=== PATIENT | female | born 1995 | race Caucasian/White ===

== ENCOUNTER 2020-08-19 10:26 | Emergency (ER) | payer BC, SELFPAY ==
[2020-08-19 10:40] VITALS: BP 112/76; PULSE 62; RESP 16; TEMP 36.9; O2SAT 100
--- NOTE | 2020-08-19 10:45 | ED.WOUNDLAC ---
HPI - Wound/Laceration General Chief Complaint: Wound/Laceration Stated Complaint: Laceration to finger Time Seen by Provider: 08/19/20 10:45 Source: patient Mode of arrival: ambulatory Limitations: no limitations History of Present Illness HPI narrative: Laney Alvarenga is a 24 yo female with no PMH cones to express care with a small laceration of her R index finger that occurred yesterday. She has oozing in area each time she straightens finger. She has no ongoing bleeding, has tetanus. 2 vomiting diarrhea, no dizziness, patient wrapped finger with gauze and Coban, elevated during the night but it continues to ooze Related Data Home Medications Medication Instructions Recorded Confirmed norelgestromin-ethin.estradiol 1 patch TRANSDERMAL DIRECTED 08/19/20 08/19/20 [Sandy] Allergies Allergy/AdvReac Type Severity Reaction Status Date / Time No Known Allergies Allergy Unverified 08/19/20 10:32 Review of Systems Review of Systems: Narrative: CONSTITUTIONAL: Denies fever, chills, sweats. EYES: Denies visual changes, redness, discharge. ENT: Denies rhinorrhea, congestion, sore throat, otalgia. CARDIOVASCULAR: Denies chest pain, palpitations, edema. RESPIRATORY: Denies dyspnea, wheezing, cough GASTROINTESTINAL: Denies abdominal pain, nausea, vomiting, diarrhea. GENITOURINARY: Denies dysuria, hematuria, abnormal discharge SKIN: Denies rash or itching. Patient laceration base of right index finger, palm side NEUROLOGIC: Denies numbness, or focal weakness. PSYCHIATRIC: Denies anxiety or depression. [facility] Past Medical History Medical History Psychophysiologic insomnia Family History Family History Mother Patient's mother is in good health Father Patient's father is in good health Sibling Patient's sister is in good health Patient's brother is in good health Grandparent Family history of coronary artery disease, Onset Age: 74 Other Hypertension Social History Social History Social History: Smoking status: Never smoker Second hand tobacco smoke exposure: No Alcohol intake: never Substance use: never Substance use type: does not use Gender identity (if verbalized by the patient): Female Comments At time of signature, I agree with nursing past medical, surgical, social and family history. There is no relevant family history pertinent to the presenting complaint. Exam Narrative: Exam Narrative: GENERAL: This is a well-nourished, well-developed patient, in mild distress. HEAD: normocephalic, atraumatic. EYES: Sclera clear/white. Vision is grossly intact. EARS: External ears normal, . Hearing grossly intact. NOSE: External nose normal without nasal discharge, nares without redness, no rhinorrhea. THROAT: Mucous membranes moist, NECK: Neck supple, CARDIOVASCULAR: Regular rate and rhythm without murmurs, gallops, or rubs. RESPIRATORY: Clear to auscultation. Breath sounds equal bilaterally. No wheezes, rales, or rhonchi. GASTROINTESTINAL: Abdomen soft, SKIN: warm, intact with 1.5 V-shaped superficial laceration palmar side of the base of right index finger, full range of motion good finger opposition with finger strength good sensation 2+ radial pulse NEURO: awake, alert, and oriented to person, place and time. There were no obvious focal neurologic abnormalities. Steady gait EXTREMITIES: Normal range of motion. BACK: Nontender without deformity Course Course Emergency Course: Patient had right index finger replaced hand yesterday Laceration superficial of the does not require suturing was continued is pleasant so was covered with Surgicel and dressed with Coban and finger splint Discussed care of hand over the next few days received tetanus shot Vital Signs Vital signs: Vital Signs
[2020-08-19] MEDS: TETANUS,DIPHTHERIA,AC PERTUSSIS ADULT (0.5 ML) BOOSTRIX IM (10:49)
== END 2020-08-19 11:06 | disposition home or self-care (01) ==
PROVIDERS: Emergency Provider Nurse Practitioner; PCP Family Medicine
DX: S61.210A Laceration without foreign body of right index finger without damage to nail, initial encounter (principal); X58.XXXA Exposure to other specified factors, initial encounter; Z23 Encounter for immunization
CPT/HCPCS: 12001; 90471; 90715; 99213; G0463

== ENCOUNTER 2021-07-08 10:36 | Emergency (ER) | payer BC, SELFPAY ==
[2021-07-08 10:49] VITALS: BP 113/70; PULSE 72; RESP 16; TEMP 37.3; O2SAT 100
--- NOTE | 2021-07-08 11:18 | ED.ABDPAIN ---
HPI - Abdominal Pain General Chief Complaint: Nausea/Vomiting/Diarrhea Stated Complaint: abd pain Time Seen by Provider: 07/08/21 11:18 Source: patient Mode of arrival: ambulatory Limitations: no limitations History of Present Illness HPI narrative: Laney Alvarenga is a 25 yo female with PMH of anxiety at night, [facility] a left-sided enlarged lymph node and a history of 24 hours of nausea & vomiting stop last night at midnight. She and ate Israeli food the night before and she started getting sick and having diarrhea and vomiting and did it all day long, her believes that she may have gotten some type of food poisoning (they ate different meals) Related Data Allergies Allergy/AdvReac Type Severity Reaction Status Date / Time No Known Allergies Allergy Unverified 07/08/21 11:10 Review of Systems Review of Systems: CONSTITUTIONAL: Denies fever, chills, sweats. EYES: Denies visual changes, redness, discharge. ENT: Denies rhinorrhea, congestion, sore throat, otalgia. Bilateral lymph nodes left being greater than right; submandibular CARDIOVASCULAR: Denies chest pain, palpitations, edema. RESPIRATORY: Denies dyspnea, wheezing, cough GASTROINTESTINAL: Denies abdominal pain, nausea, vomiting, diarrhea that stopped last night at midnight. GENITOURINARY: Denies dysuria, hematuria, abnormal discharge SKIN: Denies rash or itching. NEUROLOGIC: Denies numbness, or focal weakness. PSYCHIATRIC: Denies anxiety or depression. [facility] Past Medical History Medical History Anxiety Psychophysiologic insomnia Family History Family History Mother Patient's mother is in good health Father Patient's father is in good health Sibling Patient's sister is in good health Patient's brother is in good health Grandparent Family history of coronary artery disease, Onset Age: 74 Other Hypertension Social History Social History Social History: Smoking status: Never smoker Second hand tobacco smoke exposure: No Alcohol intake: never Substance use: never Substance use type: does not use Gender identity (if verbalized by the patient): Female Sexual Orientation (if Verbalized by the Patient): Straight or Heterosexual Comments At time of signature, I agree with nursing past medical, surgical, social and family history. There is no relevant family history pertinent to the presenting complaint. Exam Narrative: GENERAL: This is a well-nourished, well-developed patient, in mild distress. HEAD: normocephalic, atraumatic. EYES: Sclera clear/white. Vision is grossly intact. EARS: External ears normal, auditory canals erythema and without drainage, TMs normal without perforation. Hearing grossly intact. NOSE: External nose normal without nasal discharge, nares without redness, no rhinorrhea. THROAT: Mucous membranes moist, posterior pharynx erythema, no edema NECK: Neck supple, left-sided submandibular tender lymph node CARDIOVASCULAR: Regular rate and rhythm without murmurs, gallops, or rubs. RESPIRATORY: Clear to auscultation. Breath sounds equal bilaterally. No wheezes, rales, or rhonchi. GASTROINTESTINAL: Abdomen soft, SKIN: warm, intact with no suspicious lesions or rash, good texture and turgor. NEURO: awake, alert, and oriented to person, place and time. There were no obvious focal neurologic abnormalities. Steady gait EXTREMITIES: Normal range of motion. BACK: Nontender without deformity Course Course Emergency Course: Patient comes with left-sided greater than right submandibular lymph node tenderness and swelling as well as nausea vomiting stopped last night Patient has been able to take fluids without problem and has no abdominal pain On exam her ears and throat are both erythematous strep test was d
== END 2021-07-08 11:50 | disposition home or self-care (01) ==
PROVIDERS: Emergency Provider Nurse Practitioner; PCP Family Medicine
DX: A05.9 Bacterial foodborne intoxication, unspecified (principal); I88.9 Nonspecific lymphadenitis, unspecified; F41.9 Anxiety disorder, unspecified
CPT/HCPCS: 87081; 87880; 99213; G0463

== ENCOUNTER 2022-05-20 08:18 | Emergency (ER) | payer BC, SELFPAY ==
--- NOTE | 2022-05-20 08:22 | ED.URI ---
HPI - URI/Sore Throat General Chief Complaint: Upper Respiratory Infection Stated Complaint: Fever,Multiple Compliants Time Seen by Provider: 05/20/22 08:25 Source: patient Mode of arrival: ambulatory Limitations: no limitations History of Present Illness HPI Narrative: Ms. Alvarenga is a 26-year-old female patient presenting to the clinic today with complaints of fever, chills, jaw pain, and body aches x1 day. She reports no known exposure to anybody with COVID, flu, or strep. She does have a sore to the left heel that she thinks may be infected. Reports highest temperature was 100 ?F. She denies any dental pain MD elicited complaint: fever Related Data Allergies Allergy/AdvReac Type Severity Reaction Status Date / Time No Known Allergies Allergy Verified 05/20/22 08:23 Review of Systems Review of Systems: Pertinent positives per HPI. Patient denies any rash, headache, visual changes, dizziness, cough, shortness of breath, chest pain, palpitations, nausea, vomiting, diarrhea, constipation, abdominal pain, or any urinary issues. PMFSH Past Medical History Medical History Anxiety Psychophysiologic insomnia Family History Family History Mother Patient's mother is in good health Father Patient's father is in good health Sibling Patient's sister is in good health Patient's brother is in good health Grandparent Family history of coronary artery disease, Onset Age: 74 Other Hypertension Social History Social History Social History: Smoking status: Never smoker Second hand tobacco smoke exposure: No Alcohol intake: never Substance use: never Substance use type: does not use Gender identity (if verbalized by the patient): Female Sexual Orientation (if Verbalized by the Patient): Straight or Heterosexual Comments At the time of my signature, I reviewed and agree with the nursing past medical, surgical, social, and family history. There is no relevant family history pertinent to the patient complaint. Exam Narrative: General: Well-developed, well nourished, in no apparent distress Head: Normocephalic, atraumatic Eyes: Pupils equally round and reactive to light bilaterally, EOM intact, sclera and conjunctive clear, no discharge, lids normal Ears: TMs intact and clear, ear canals clear, no drainage, grossly hearing normal. Nose: Nares patent, clear discharge, no inflammation, no sinus tenderness. Mouth: Oral pharynx without lesions or masses, good dentition, MMM. Tenderness to palpation over bilateral TMJ Neck: Supple, trachea midline, no enlargement of anterior or posterior cervical nodes, no thyroid masses or goiter palpable. Cardio: Regular rate and rhythm, s1 and s2 normal, no murmur appreciated. Resp: Clear to auscultation bilaterally, no rhonchi, rales, wheezing or rubs Skin: [place], warm, dry, no mass or lesion, open sore with surrounding redness and mild induration without drainage to the left posterior lateral heel. Course Course Emergency Course: Portions of this record may have been created with voice recognition software. Level of Care: Express Care Visit Vital Signs Vital signs: Vital signs reviewed MDM - URI/Sore Throat MDM Narrative Medical decision making narrative: At the time of visit patient is resting comfortably on exam table. COVID and influenza testing was obtained and were negative in the clinic today. I suspect the patient has a bacterial skin infection as well as TMJ. Supportive measures were discussed with the patient and she voiced understanding of discharge instructions and agrees to treatment plan. Prescription for doxycycline was sent to the pharmacy Differential Diagnosis Differential diagnosis: Likely upper respiratory infection, otitis media, sinusit
[2022-05-20 08:24] VITALS: BP 107/68; PULSE 80; RESP 16; TEMP 36.6; O2SAT 99
== END 2022-05-20 08:53 | disposition home or self-care (01) ==
PROVIDERS: Emergency Provider Nurse Practitioner Family; PCP Family Medicine
DX: L08.9 Local infection of the skin and subcutaneous tissue, unspecified (principal); B96.89 Other specified bacterial agents as the cause of diseases classified elsewhere; M26.603 Bilateral temporomandibular joint disorder, unspecified; Z20.822 Contact with and (suspected) exposure to COVID-19; F51.04 Psychophysiologic insomnia
CPT/HCPCS: 87426; 87804; 99213; C9803; G0463

== ENCOUNTER 2023-05-23 03:19 | Inpatient (IN) | payer BC, SELFPAY ==
[2023-05-23] VITALS (139 sets, daily range): BP systolic 84–122; BP diastolic 38–85; PULSE 25–146; RESP 16–18; TEMP 36.1–36.9; O2SAT 67–100; BMI 29.9
--- NOTE | 2023-05-23 03:19 | LDADM ---
This patient, Laney Alvarenga, was admitted to Labor/Delivery/Recovery 106 on 05/23/23 at 03:19. Plans for labor, pain management and were discussed with patient. Patient/family oriented to hospital policies and general routines including ID bracelet, bed and alarms, visiting hours, pain management, procedures, bathroom and other care routines, personal items, smoking policy, room service/diet and guest tray routines, security routines, and visiting hours. Patient/Family are encouraged to report perceived risks to care and to ask questions if they do not understand what they are told or what they should do. See OBIX for further documentation.
[2023-05-23 04:22] LABS: Basophils Absolute Auto 0.1 K/mm3 (0.0-0.1); Basophils Percent Auto 0.4 % (0.2-1.2); Eosinophils Absolute Auto 0.2 K/mm3 (0-0.3); Eosinophils Percent Auto 1.3 % (0-4.4); Hematocrit 37.4 % (37.0-47.0); Hemoglobin 12.6 g/dL (12.0-15.0); Immature Granulocyte Absolute 0.08 K/mm3 (0.00-0.031); Immature Granulocyte Percent A 0.6 % (0-0.5); Lymphocytes Absolute Auto 2.75 K/mm3 (0.9-3.2); Lymphocytes Percent Auto 19.8 % (18.3-44.2); Mean Corpuscular HGB Conc 33.7 g/dl (32-36); Mean Corpuscular Hemoglobin 31.4 pg (26-34); Mean Corpuscular Volume 93.3 fl (80-100); Mean Platelet Volume 11.3 fl (7.4-10.4); Monocytes Absolute Auto 0.8 K/mm3 (0.1-0.6); Monocytes Percent Auto 5.4 % (2.6-8.5); Neutrophils Absolute Auto 10.1 K/mm3 (1.3-6.7); Neutrophils Percent Auto 72.5 % (45.5-73.1); Platelet Count Result 233 k/mm3 (150-375); Red Blood Count 4.01 M/mm3 (4.2-5.4); Red Cell Distribution Width 12.8 % (11.5-14.5); White Blood Count 13.9 K/mm3 (4.5-10.0)
[2023-05-23] MEDS: LACTATED RINGERS 1,000 ML 125 ML IV CONT ×2 (04:44→05:15)
[2023-05-23] MEDS: ONDANSETRON INJ 4 MG/2 ML VIAL IV PUSH (04:46)
--- NOTE | 2023-05-23 04:55 | WPDANESEPPF ---
Anes - Initial Pre Proc Eval Procedure: Labor epidural Date/Time: 05/23/23 04:55 Surgeon: Robert Kenney MD Pre Op Diagnosis: Labor pain Pre Op Diagnosis: Leaking fluid/Contractions Patient Data Age: 27 Gender: F Height: 1.68 m Weight: 84 kg Last Vital Signs Pulse 57 L 05/23/23 04:30 BP 112/75 05/23/23 04:30 O2 Del Method Room Air 05/23/23 04:21 Allergies Allergy/AdvReac Type Severity Reaction Status Date / Time No Known Allergies Allergy Verified 05/09/23 13:17 Home Medications Medication Instructions Recorded Confirmed Type docosahexaenoic acid 200 mg 200 mg PO DAILY 02/21/23 05/23/23 History capsule ( DHA) trazodone 50 mg tablet 100 mg PO QHS #200 tabs 02/21/23 05/23/23 Rx Laboratory Tests 05/23/23 04:17 WBC 13.9 H K/mm3 (4.5-10.0) RBC 4.01 L M/mm3 (4.2-5.4) Hgb 12.6 g/dL (12.0-15.0) Hct 37.4 % (37.0-47.0) MCV 93.3 fl (80-100) MCH 31.4 pg (26-34) MCHC 33.7 g/dl (32-36) RDW 12.8 % (11.5-14.5) Plt Count 233 k/mm3 (150-375) MPV 11.3 H fl (7.4-10.4) Immature Gran % (Auto) 0.6 H % (0-0.5) Neut % (Auto) 72.5 % (45.5-73.1) Lymph % (Auto) 19.8 % (18.3-44.2) Hart % (Auto) 5.4 % (2.6-8.5) Eos % (Auto) 1.3 % (0-4.4) Baso % (Auto) 0.4 % (0.2-1.2) Lymph # (Auto) 2.75 K/mm3 (0.9-3.2) Hart # (Auto) 0.8 H K/mm3 (0.1-0.6) Eos # (Auto) 0.2 K/mm3 (0-0.3) Baso # (Auto) 0.1 K/mm3 (0.0-0.1) Abs Immat Gran (auto) 0.08 H K/mm3 (0.00-0.031) Absolute Neuts (auto) 10.1 H K/mm3 (1.3-6.7) Absolute Nucleated RBC 0.0 K/mm3 (0.0-0.012) Nucleated RBC % 0.0 % (0.0-0.2) RPR Pending Patient hx anesthesia problems: none Family hx anesthesia problems: none Results Review: All pre-operative results and documents have been reviewed as part of the pre-operative evaluation. [facility] Past Medical History Medical History Anxiety Psychophysiologic insomnia Family History Family History Mother Patient's mother is in good health Father Patient's father is in good health Sibling Patient's sister is in good health Patient's brother is in good health Grandparent Family history of coronary artery disease, Onset Age: 74 Other Hypertension Social History Social History Social History: Smoking status: Never smoker Second hand tobacco smoke exposure: No Alcohol intake: never Substance use: never Substance use type: does not use Lack of Transportation: No Lack of Food: Never True Current Housing: I Have Housing Concerned About Future Housing: No Difficulty Paying Gas/Electric Bills: No Difficulty Paying for Meds: No Currently Unemployed: No Education: Master's Degree or Higher Difficulty w/ Childcare or Family Care: No Living arrangements: with family Occupation/Education: occupation Gender identity (if verbalized by the patient): Female Sexual Orientation (if Verbalized by the Patient): Straight or Heterosexual Spiritual care concerns: No Anes - Eval Final PreProcedure Day of Procedure 05/23/23 04:55 Patient weight: normal Heart: regular rate and rhythm ASA classification: II Emergent: no Anesthetic plan: proceed Anesthesia type and monitoring: regional epidural and standard monitoring Results Review: All pre-operative results and documents have been reviewed as part of the pre-operative evaluation. Informed Consent: The patient's anesthetic plan and its attendant risks and benefits were discussed with the patient/family/POA. Questions were solicited and answers provided to the satisfaction of the patient/family/POA.
--- NOTE | 2023-05-23 05:13 | WPDANESEPN ---
Anes - Epidural Procedure Note Date/Time: 05/23/23 05:13 Consent: I have discussed with the patient/family/POA, the placement of an epidural catheter and the use of epidural narcotic/local anesthetic for labor analgesia and/or postoperative pain management, including associated potential risks, benefits, complications and side effects. I have discussed alternative methods of labor analgesia and/or postoperative pain management. The patient/family/POA, understand(s) and wish(es) to proceed with epidural narcotic/local anesthetic for labor analgesia and/or postoperative pain management. Time-Out: A pre-procedural Time-Out was completed immediately before starting the procedure and confirmed: Patient Identification, Site, Procedure, Patient Position and the Availability of Requisite Equipment. Clinical Indications: Labor pain Epidural Insertion Note Patient position: sitting Skin prep: chlorhexidine and sterile drape Needle: 18g Tuohy-Schliff Catheter: 20g Unstyleted Technique: Loss of resistance. Level of insertion: L3/4 Catheter skin zehra (cm): 9 Length in epidural space (cm): 4 Skin anesthesia: lidocaine 1% Test dose: 1.5% Lidocaine with 1:[id number] Epi, negative for subarachnoid Inj and negative for intravascular Inj Time of test dose: 05:03 Observations: tolerated well Complications: none
--- NOTE | 2023-05-23 06:30 | PM.IMHP ---
H&P: HPI History of Present Illness Date/Time: 05/23/23 06:30 Chief Complaint: Leaking fluid Narrative: 27-year-old 1 para 0 whose last menstrual period was 08/24/2022, EDC 06/08/2023, presents at 38 weeks gestation with spontaneous rupture membranes prior to admission. Her has been uncomplicated thus far she has negative group B strep. She is presently 5-6 cm 90% effaced and -1 station. PMFSH Past Medical History Medical History Anxiety Psychophysiologic insomnia Family History Family History Mother Patient's mother is in good health Father Patient's father is in good health Sibling Patient's sister is in good health Patient's brother is in good health Grandparent Family history of coronary artery disease, Onset Age: 74 Other Hypertension Social History Social History Social History: Smoking status: Never smoker Second hand tobacco smoke exposure: No Alcohol intake: never Substance use: never Substance use type: does not use Lack of Transportation: No Lack of Food: Never True Current Housing: I Have Housing Concerned About Future Housing: No Difficulty Paying Gas/Electric Bills: No Difficulty Paying for Meds: No Currently Unemployed: No Education: Master's Degree or Higher Difficulty w/ Childcare or Family Care: No Living arrangements: with family Occupation/Education: occupation Gender identity (if verbalized by the patient): Female Sexual Orientation (if Verbalized by the Patient): Straight or Heterosexual Spiritual care concerns: No Meds Home Medications and Allergies Home Medications Medication Instructions Recorded Confirmed Type docosahexaenoic acid 200 mg 200 mg PO DAILY 02/21/23 05/23/23 History capsule ( DHA) trazodone 50 mg tablet 100 mg PO QHS #200 tabs 02/21/23 05/23/23 Rx Allergies Allergy/AdvReac Type Severity Reaction Status Date / Time No Known Allergies Allergy Verified 05/09/23 13:17 Vital Signs Vital Signs - 24 hr 05/23/23 04:15 05/23/23 04:30 05/23/23 04:55 Pulse Rate 57 L 57 L 74 Blood Pressure 117/67 112/75 105/38 L Pulse Oximetry Oxygen Delivery 05/23/23 04:59 05/23/23 05:00 05/23/23 05:00 Pulse Rate 61 Blood Pressure 119/79 122/79 Pulse Oximetry 100 Oxygen Delivery 05/23/23 05:00 05/23/23 05:02 05/23/23 05:04 Pulse Rate 68 66 60 Blood Pressure 117/85 120/74 Pulse Oximetry 100 Oxygen Delivery 05/23/23 05:06 05/23/23 05:07 05/23/23 05:08 Pulse Rate 56 L 66 Blood Pressure 122/62 116/77 Pulse Oximetry 100 Oxygen Delivery 05/23/23 05:10 05/23/23 05:11 05/23/23 05:12 Pulse Rate 54 L 59 L Blood Pressure 112/65 112/62 Pulse Oximetry 100 Oxygen Delivery 05/23/23 05:13 05/23/23 05:14 05/23/23 05:16 Pulse Rate 67 68 59 L Blood Pressure 117/65 108/65 110/66 Pulse Oximetry Oxygen Delivery 05/23/23 05:17 05/23/23 05:18 05/23/23 05:23 Pulse Rate 58 L Blood Pressure 113/59 L Pulse Oximetry 100 98 100 Oxygen Delivery 05/23/23 05:28 05/23/23 05:30 05/23/23 05:33 Pulse Rate 56 L Blood Pressure 107/58 L Pulse Oximetry 100 99 Oxygen Delivery 05/23/23 05:39 05/23/23 05:43 05/23/23 05:45 Pulse Rate 55 L Blood Pressure 105/58 L Pulse Oximetry 100 100 Oxygen Delivery 05/23/23 05:49 05/23/23 05:53 05/23/23 05:58 Pulse Rate Blood Pressure Pulse Oximetry 100 98 99 Oxygen Delivery 05/23/23 06:00 05/23/23 06:02 05/23/23 06:04 Pulse Rate 55 L Blood Pressure 106/48 L Pulse Oximetry 98 99 Oxygen Delivery 05/23/23 06:06 05/23/23 06:11 05/23/23 06:12 Pulse Rate Blood Pressure Pulse Oximetry 98 97 98 Oxygen Delivery 05/23/23 06:15 05/23/23 06:17 05/23
--- NOTE | 2023-05-23 08:47 | PM.OBPNLAB ---
Pain Control Date/time seen: 05/23/23 08:47 Pain control: tolerating well and epidural Pelvic Exam Dilation (cm): 9 Effacement (%): 90 station: 0 Amniotic membrane status: Leaking
[2023-05-23 10:57] LABS: Rapid Plasma Reagin Non-Reactive (NonReactive)
--- NOTE | 2023-05-23 11:47 | P.PCNOB_ITS ---
OB - Delivery Note Procedure Delivery date: 05/23/23 Induction method: None Delivery monitor: External FHT Route of delivery: Episiotomy description: None Laceration Description: Perineal - 1st Degree Delivery repair: vicryl Quantitative Blood Loss (ml): 100 Anesthesia type: Epidural Disposition: Floor [place] Baby Date of : 05/23/23 Time of : 11:27 Weeks of gestation at delivery: 37 gender: Male Weight (pounds): 7 Weight (ounces): 2 presentation: vertex position: Right Occiput Anterior Placenta delivery description: Spontaneous Cord Vessel Description: 3 Vessels and Delayed Cord Clamping score one minute: 8 score five minutes: 9
[2023-05-23] MEDS: OXYTOCIN 30 UNITS/NS 500 ML 30 UNITS/500 ML BAG 125 UNITS IV CONT (12:14)
--- NOTE | 2023-05-23 14:15 | PC.NURSE ---
Patient transferred to post room #287 via (w/c). Support person present. Oriented to unit, room, information board, rooming in, admission packet and security measures. Patient verbalizes understanding.
[2023-05-23] MEDS: WITCH HAZEL 40 PADS 1 PAD TOPICAL (17:35)
--- NOTE | 2023-05-23 19:35 | PC.NURSE ---
[id number] Introductions were made, then consulted with patient to assess needs related to after Primary RN walks in with a pump. Mother led the conversation with her?plans to feed?her infant and the?experience so far. Mother works well with her infant with encouragement and education. Encouraged understanding of the benefits of skin to skin (demonstrating unwrapping and placing upright on her chest), stimulating with massage touch, changing positions to encourage wakefulness, how to watch for early feeding cues, responsive feeding, feeding on demand (aiming for 8-12 times in 24 hours, about every 2-3 hours), milk production, hand expression, building/maintaining a milk supply, duration of feeding, signs of adequate intake/output and how to record on the feeding sheet. was given time [id number] on mother's chest to practice instincts to find the breast. Infant was unable to latch independently and is sleepy, reluctant and 6 hours old. Mother is reassured that it is common for the infant to be sleepy at this time. When infant demonstrated feeding cues we reviewed together positioning, alignment, supporting the breast to facilitate a deep latch, asymmetrical latch (off-center), leading with the chin with a big, open, wide gape and body close to mother. Infant doens't want to latch at this time and was left [id number] upright on mother's chest. Mother is eager to learn hand expression and demonstrates understanding. Infant was fed 2.5mls of colostrum giving him the opportunity to lap it from the spoon, then placed back [id number]. Resources used to facilitate learning were used with the mom and baby guide. Mother voiced understanding of skin to skin, stimulating with massage touch, responsive feedings, hand expressed colostrum, talking to infant to encourage if it has been 2 -2.5 hours since the start of the last , to call if infant does not latch, or if there is discomfort with . Resources provided for inpatient/outpatient with feeding sheet and the mom/baby guide. Parents voiced understanding of information, demonstrated learning and will call if there is a request for assistance. Reported to the Primary RN.
[2023-05-24 00:56] VITALS: BP 107/70; PULSE 75; RESP 18; TEMP 36.8; O2SAT 99
[2023-05-24 05:52] LABS: Hematocrit 33.5 % (37.0-47.0); Hemoglobin 11.3 g/dL (12.0-15.0)
--- NOTE | 2023-05-24 09:32 | PM.OBPNVD ---
OB - PN: Subj Subjective Date/time seen: 05/24/23 09:32 Narrative: Pain OK. Would like circumcision for son. Would like to go home. OB - PN: Obj Data Labs 05/24/23 04:48 Labs: Laboratory Results - last 24 hr 05/23/23 05/24/23 04:17 04:48 Hgb 11.3 L Hct 33.5 L RPR Non-reactive OB - PN A/P Plan Comments: A: PPD#1, doing well. P: Reviewed circ. Home to f/u 6 weeks. Exam Psych: Other: AVSS ABD soft, nontender, fundus firm EXT nontender
[2023-05-24] MEDS: MULTIVIT/MIN/PREN/FOL AC/IRON TABLET 1 TAB PO (10:19)
[2023-05-24 10:20] VITALS: BP 117/73; PULSE 59; RESP 18; TEMP 36.7; O2SAT 100
[2023-05-24] MEDS: DOCUSATE SODIUM 100 MG CAPSULE PO (15:47)
[2023-05-24 15:58] VITALS: BP 122/78; PULSE 66; RESP 18; TEMP 36.6; O2SAT 100
[2023-05-24 20:56] VITALS: BP 101/64; PULSE 55; RESP 18; TEMP 36.6; O2SAT 99
[2023-05-25 09:00] VITALS: BP 114/68; PULSE 76; RESP 16; TEMP 36.6; O2SAT 99
--- NOTE | 2023-05-25 09:09 | PM.OBPNVD ---
OB - PN: Subj Subjective Date/time seen: 05/25/23 09:09 Narrative: Pain OK. Would like to go home. OB - PN: Obj Data Labs 05/24/23 04:48 OB - PN A/P Plan Comments: A: PPD#2, doing well. P: Home to f/u 6 weeks. Exam Psych: Other: AVSS ABD soft, nontender, fundus firm EXT nontender
--- NOTE | 2023-05-25 11:00 | PC.NURSE ---
Patient viewed the discharge video Mother & Baby Care, The First Two Weeks . Patient was given the opportunity and encouraged to ask questions. Patient verbalized understanding of information shared and has been given the mother/baby guide for home reference.
[2023-05-25] MEDS: MULTIVIT/MIN/PREN/FOL AC/IRON TABLET 1 TAB PO (11:11)
[2023-05-25] MEDS: DOCUSATE SODIUM 100 MG CAPSULE PO (11:11)
--- NOTE | 2023-06-19 13:02 | PM.OBTRLD ---
OB - Triage/Final Diagnosis Visit Information Comments/Additional reasons for admission: I have assessed the risk for this patient, Laney Alvarenga, and determined that she would benefit from observation care. Evaluation Laboratory results: Laboratory Tests 05/23/23 05/24/23 04:17 04:48 WBC 13.9 H RBC 4.01 L Hgb 12.6 11.3 L Hct 37.4 33.5 L MCV 93.3 MCH 31.4 MCHC 33.7 RDW 12.8 Plt Count 233 MPV 11.3 H Immature Gran % (Auto) 0.6 H Neut % (Auto) 72.5 Lymph % (Auto) 19.8 [place] % (Auto) 5.4 Eos % (Auto) 1.3 Baso % (Auto) 0.4 Lymph # (Auto) 2.75 [place] # (Auto) 0.8 H Eos # (Auto) 0.2 Baso # (Auto) 0.1 Abs Immat Gran (auto) 0.08 H Absolute Neuts (auto) 10.1 H Absolute Nucleated RBC 0.0 Nucleated RBC % 0.0 RPR Non-reactive Blood Type AB Positive Antibody Screen Negative Final Diagnosis (1) False labor: Code(s): O47.9 - False labor, unspecified Status: Acute
--- NOTE | 2023-06-20 12:08 | PM.OBDSVD ---
DS: Admitting Diagnosis Discharge Date 05/25/23 Admitting Diagnosis IUP at term SROM DS: Discharge Diagnosis Discharge Diagnosis (1) (normal spontaneous vaginal delivery): Code(s): O80 - Encounter for full-term uncomplicated delivery Status: Acute OB - DS: Summary OB Procedures : None OB Procedures Intrapartum: Spontaneous Vag Delivery OB Procedures: : None Peripartum Data Laceration Description: Perineal - 1st Degree Episiotomy description: None Time Spent with Patient Time attestation: Total time spent providing and/or coordinating discharge services: Discharge Plan Discharge Attending physician on discharge: Jaden Mota Consulting providers: Reji Grey Discharging Clinician: Jaden Mota Patient Disposition: Home, Self-Care Activity: pelvic rest Diet: regular Discharge Instructions: Education: Mom and Baby Guide Given to: Mother Follow-Up: Call your delivering provider's office for an appointment to be seen in: 6 Weeks Mom and baby should come [facility] the [facility] for the follow-up appointment. Appointment Date/Time: May 27, 2023 at 8:00 am What to expect at your follow-up visit: Blood Pressure Check Physical Assessment Call [phone] if you are unable to keep your appointment time. BREAST CARE: * Wear a snug supportive bra. * For engorgement discomfort: Breast Feeding: * Apply warm moist washcloths * Express milk as needed to relieve engorgement * Wear loose clothing Bottle Feeding: * May apply ice packs * For sore nipples: * Identify correct latch-on * Apply warm moist washcloths before and after nursing * Air dry nipples after nursing * May apply Lansinoh cream to nipples EPISIOTOMY/PERINEAL CARE: * Until bleeding stops, use your yaneth bottle after urinating * Change your pad frequently throughout the day * You may take sitz baths several times a day (fill your bathtub with warm water and soak for 20 minutes.) Do NOT bathe in the water * No tub baths until seen by your physician - You may shower ACTIVITY: * Rest as much as possible. * Do not exercise or lift anything heavier than your baby (such as laundry or other children.) * Avoid stairs or driving as much as possible. * Do not put anything into the vagina. No douching, tampons, or sexual activity until seen by physician. NOTIFY PHYSICIAN IF YOU HAVE ANY QUESTIONS OR IF ANY OF THE FOLLOWING SYMPTOMS OCCUR: * If your episiotomy or incision becomes red, swollen, or more painful than what you have experienced in the hospital. * If your vaginal bleeding becomes foul smelling. * If your vaginal bleeding becomes more heavy than a period or if your bleeding changes from pink to bright red. However, you may pass an occasional walnut-sized clot once or twice for the first week . * If you experience a sharp, shooting pain in you calves. * If you discover a hard, reddened area on your breast or if you experience flu-like symptoms. DIET: * Eat regular, well-balanced meals. * Drink plenty of fluids daily. If , drink to thirst.Call or return if temperature above 100.4? F, increased abdominal pain, increased vaginal bleeding or any new problems. Stand Alone Forms: General Discharge Information Follow-up/Referrals: Robert Vasquez MD [Physician] - 6 Weeks Discharge Medications: New ibuprofen 600 mg tablet 600 mg PO Q6H PRN (Reason: cramps) Qty: 30 0RF Continued DHA 200 mg capsule 200 mg PO DAILY trazodone 50 mg tablet 100 mg PO QHS Qty: 200 1RF Date of admission: 05/23/23 03:19 Primary Care Provider: Arianne Powell Admitting Provider: Robert Vasquez Attending physician on admission: Jaden Mota Condition: Stable
== END 2023-05-25 12:00 | disposition home or self-care (01) | DRG 807 ==
LOC: ANHOB2 05-25 10:54 → ANHLDR 05-27 11:15 → ANHOB2 05-27 11:15
PROVIDERS: Admitting Provider Obstetrics & Gynecology; PCP Family Medicine; Visit Provider Obstetrics & Gynecology
DX: O70.0 First degree perineal laceration during delivery (principal); Z37.0 Single live birth; Z3A.37 37 weeks gestation of pregnancy; Z23 Encounter for immunization
CPT/HCPCS: 36415; 85014; 85018; 85025; 86592; 86850; 86900; 86901; 90471; 90686; A9270; G0008; J2405; J2590; J2795; J7120

== ENCOUNTER 2024-12-08 15:17 | Emergency (ER) | payer BC, SELFPAY ==
--- NOTE | ~2024-12-08 | CT_ITS ---
Procedure: CT foot LT wo con Ordering provider: Eagle Pineda MD History: . Calcaneus fracture . Comparison: None. Technique: Thin slice axial CT of the No IV contrast was given. Sagittal and coronal reformatted imag es were also obtained and reviewed. Radiation reduction technique utilized.The dose-length product wa s 4-5.44 mGy-cm. Findings: BONES: Comminuted fracture of the calcaneus bone with extension to the subtalar joint.. JOINT SPACES: Normal. SOFT TISSUES: Subcutaneous edema is seen on the dorsum of the foot and posteriorly. IMPRESSION: Comminuted fracture of the calcaneus bone extending to the subtalar joint. Reviewed, dictated and finalized at location A.
--- NOTE | ~2024-12-08 | XR_ITS ---
XR foot LT min 3V Ordering provider: Tea Kiran APRN History: . R LE injury . Comparison: None. FINDINGS: BONES: Fracture in the distal metaphysis of the proximal phalanx of the little toe extending to the j oint space. Possibility of fracture in the distal epiphysis of the fifth metatarsal bone is also sugg ested. Comminuted Fracture of the calcaneus bone is noted. . Overlapping cast is noted. JOINT SPACES: Normal. No tarsal coalition. SOFT TISSUES: Normal. IMPRESSION: Comminuted fracture of the calcaneus bone. Fracture of the distal metaphysis of the proximal phalanx of the little toe extending to the joint sp sania. Possible fracture in the distal epiphysis of the fifth metatarsal bone. Reviewed, dictated and finalized at location A. IMPRESSION: Comminuted fracture of the calcaneus bone. Fracture of the distal metaphysis of the proximal phalanx of the little toe ext ending to the joint space. Possible fracture in the distal epiphysis of the fifth metatarsal bone.
[2024-12-08 15:21] VITALS: BP 137/51; PULSE 72; RESP 18; TEMP 36.6; O2SAT 99
--- OUTSIDE RECORDS SUMMARY | 2024-12-08 16:11 | XMS_ITS | Clinical Summary ---
Author Organization [facility] Address [address] [place] [address] Care Team Providers Care Supervisor Alteration Workroom Name Role Phone Unavailable Primary Care Provider Unavailabl e Social History Tobacco Use Types Packs/Day Years Used Date Smoking Tobacco: Never Assessed Comments Unknown Sex and Gender Information Value Date Recorded Sex Assigned at Not on file Legal Sex Female 8:39 PM PDT Gender Identity Not on file Sexual Orientation Not on file Plan of Treatment Not on file
--- OUTSIDE RECORDS SUMMARY | 2024-12-08 16:11 | XMS_ITS | Clinical Summary ---
Author Organization [facility] Address [address] [place] [address] Care Team Providers Care Water Jet Operator Name Role Phone Arianne Powell MD Primary Care Provider + Source Comments [facility],non-owned Affiliates and Associated Physician Practices is amultiple site organization consisting of ambulatory clinics and hospital sitesin [place], [place], [place] and [place]. This disclosure is being madepursuant to the Care Everywhere program and may not contain all information available regarding this patient. Last updated 18.[employer] Allergies No known active allergies Medications * Be aware that medications may not be up to date on this document. Alwaysverify current medications with the patient. traZODone (DESYREL) 50 MG tablet Take 50 mg by mouth at bedtime Active Norelgestromin- Eth Estradiol (XULANE TD) Active Social History Tobacco Use Types Packs/Day Years Used Date Smoking Tobacco: Never Smokeless Tobacco: Never Tobacco Cessation:Counseling Given: Yes PHQ-2 Answer Date Recorded PHQ2 TOTAL SCORE 0 12/15/2020 Comments No Sex and Gender Information Value Date Recorded Sex Assigned at Not on file Legal Sex Female 3:02 PM CDT Gender Identity Not on file Sexual Orientation Not on file Last Filed Vital Signs Vital Sign Reading Time Taken Comments Blood Pressure 118/68 12/15/2020 2:39 PM CDT Pulse 86 12/15/2020 2:39 PM CDT Temperature 36.4 C (97.6 F) 12/15/2020 2:39 PM CDT Respiratory Rate 14 12/15/2020 2:39 PM CDT Oxygen Saturation 99% 12/15/2020 2:39 PM CDT Inhaled Oxygen Concentration - - Weight 63.5 kg (140 lb) 12/15/2020 2:39 PM CDT Height 167.6 cm (5' 6 ) 12/15/2020 2:39 PM CDT Body Mass Index 22.6 12/15/2020 2:39 PM CDT Plan of Treatment Health Maintenance Due Date Last Done Comments PAP SMEAR 1993 HIV SCREENING 2008 HEPATITIS C SCREENING 12/10/2011 DTAP/TDAP/TD VACCINES (1 - Tdap) 2012 HEPATITIS B VACCINE (1 of 3 - 19+ 3-dose series) 2012 COVID-19 VACCINE ( - 2023-2 5 season) 2024 DEPRESSION SCREENING 08/11/2024 INFLUENZA VACCINE (Season Ended) 2025 ZOSTER VACCINE (1 of 2) 12/15/2043 HIB VACCINE Aged Out No longer eligi ble based on patient's age to complete this topic HPV VACCINE Aged Out No longer eligi ble based on patient's age to complete this topic MENINGOCOCCAL (Group B) VACC INE SHARED DECISION-MAKING Aged Out No longer eligibl e based on patient's age to complete this topic MENINGOCOCCAL GROUPS A/C/Y/W VACCINE Aged Out No longer eligible b ased on patient's age to complete this topic PNEUMOCOCCAL VACCINE Aged Out No long er eligible based on patient's age to complete this topic Insurance ANTHEM Care Teams Water Jet Operator Relationship Specialty Start Date End Date Arianne Powell MD [address] [facility] [address] [place] [address] PCP - General Family Medicine 02/12/19
--- OUTSIDE RECORDS SUMMARY | 2024-12-08 16:11 | XMS_ITS | Encounter Summary ---
Author Organization [facility] Address [address] [place] [address] Care Team Providers Care Rotary Driller Name Role Phone Unavailable Primary Care Provider Unavailabl e Prior Encounters Date Type Department Care Team Description 08/30/2019 Converted 13x Documents [facility] [address] [place] [id number] <No scans attached> Plan of Treatment Not on file Visit Diagnoses Not on file
--- NOTE | 2024-12-08 16:46 | ED_ITS ---
HPI - General Adult General Chief complaint: Unspecified <Tea Kiran APRN - Last Filed: 12/08/24 16:51> Stated complaint: broke foot last night, can't get into ortho <Tea Kiran APRN - Last Filed: 12/08/24 16:51> Time Seen by Provider: 12/08/24 16:40 <Tea Kiran APRN - Last Filed: 12/08/24 16:51> Focused HPI: Patient is a 28-year-old female who presents to the ER following a left lower extremity injury. She reports last night she fell down the stairs and injured her left foot/ankle. Patient reports she went to urgent care and they told her she broke her foot. Urgent care put patient's left lower extremity in an OGL. She reports she would like to establish care with an orthopedic surgeon and find out if she needs surgery. Patient denies any numbness and tingling, severe pain, decreased movement of toes. She denies any other medical history relevant to this ER visit. GENERAL: Well-appearing, well-nourished, and in no acute distress. HEAD: Normocephalic, atraumatic. CHEST: Clear to auscultation. No respiratory distress. HEART: Regular rate and rhythm. NEURO: Alert and oriented x3. Patient screened in triage and initial orders placed. Additional care and disposition to be based upon diagnostic testing and treatment. <Tea Kiran APRN - Last Filed: 12/08/24 16:51> History of Present Illness HPI narrative: Patient 28-year-old female who presents emergency department chief complaint of left heel pain. The patient reports she fell down steps seen in urgent care told her that she had a calcaneal fracture. The patient reports that she was placed in a splint and was placed on crutches patient came to the emergency department as she has had difficulty getting in contact with orthopedic surgeon <Eagle Pineda MD - Last Filed: 12/08/24 19:50> Related Data Allergies/adverse reactions: Allergies Allergy/AdvReac Type Severity Reaction Status Date / Time No Known Allergies Allergy Verified 12/08/24 18:28 <Tea Kiran APRN - Last Filed: 12/08/24 16:51> Review of Systems Review of Systems: A 10 system review of systems was completed on the patient and is negative except for what is stated in the HPI. Nursing and ancillary documentation was reviewed. <Eagle Pineda MD - Last Filed: 12/08/24 19:50> PMFSH Past Medical History Medical History: Medical History Anxiety Psychophysiologic insomnia <Tea Kiran APRN - Last Filed: 12/08/24 16:51> Family History Family History: Family History Mother Patient's mother is in good health Father Patient's father is in good health Sibling Patient's sister is in good health Patient's brother is in good health Grandparent Family history of coronary artery disease, Onset Age: 74 Other Hypertension <Tea Kiran APRN - Last Filed: 12/08/24 16:51> Social History Social History: Social History Social History: Smoking status: Never smoker Second hand tobacco smoke exposure: No Alcohol intake: never Substance use: never Substance use type: does not use Lack of Transportation: No Lack of Food: Never True Current Housing: I Have Housing Concerned About Future Housing: No Difficulty Paying Gas/Electric Bills: No Difficulty Paying for Meds: No Currently Unemployed: No Education: Master's Degree or Higher Difficulty w/ Childcare or Family Care: No Living arrangements: with family Occupation/Education: occupation Gender identity (if verbalized by the patient): Female Sexual Orientation (if Verbalized by the Patient): Straight or Heterosexual Spiritual care concerns: No <Tea Kiran APRN - Last Filed: 12/08/24 16:51> Exam Narrative: GENERAL: Well-appearing, well-nourished, and in no acute distress. HEAD: Normocephalic, atraumatic. EYES: PERRLA and EOMI. ENT: Nares clear, no rhinorrhea or epistaxis. Mucous membranes moist. NECK: Supple. CHEST: Clear to auscultation. No respiratory distress. HEART: Regular rate and rhythm. No murmur heard. Normal peripheral pulses. ABDOMEN: Soft, nontender, nondistended, normal active bowel sounds. EXTREMITIES: Normal range of motion limited in the left lower extremity there is a splint that was applied at the urgent care. No edema. SKIN: Warm, dry, no rash. NEURO: No focal deficits. Alert and oriented x3. PSYCH: Normal mood and affect. <Eagle Pineda MD - Last Filed: 12/08/24 19:50> Course Vital Signs Vital signs: Vital Signs Temperature 36.6 C 12/08/24 15:21 Pulse Rate 72 12/08/24 15:21 Respiratory Rate 18 12/08/24 15:21 Blood Pressure 137/51 L 12/08/24 15:21 Pulse Oximetry 99 12/08/24 15:21 Temperature 36.6 C 12/08/24 15:21 Pulse Rate 72 12/08/24 15:21 Respiratory Rate 18 12/08/24 15:21 Blood Pressure 137/51 L 12/08/24 15:21 Pulse Oximetry 99 12/08/24 15:21 <Tea Kiran APRN - Last Filed: 12/08/24 16:51> Vital Signs Temperature 36.6 C 12/08/24 15:21 Pulse Rate 72 12/08/24 15:21 Respiratory Rate 18 12/08/24 15:21 Blood Pressure 137/51 L 12/08/24 15:21 Pulse Oximetry 99 12/08/24 15:21 Temperature 36.6 C 12/08/24 15:21 Pulse Rate 72 12/08/24 15:21 Respiratory Rate 18 12/08/24 15:21 Blood Pressure 137/51 L 12/08/24 15:21 Pulse Oximetry 99 12/08/24 15:21 <Eagle Pineda MD - Last Filed: 12/08/24 19:50> Medical Decision Making MDM Narrative Medical decision making narrative: Differential diagnosis includes calcaneal fracture Plain film x-ray did redemonstrate the calcaneal fracture. The case was discussed with orthopedics who requested a CT scan of the calcaneus to be performed with 3D reconstructions these were obtained in the emergency department and the patient was resplinted with a new posterior splint and the patient will be discharged home to follow up with Orthopedics in the office <Eagle Pineda MD - Last Filed: 12/08/24 19:50> Vital Signs Vital Signs: Vital Signs Temperature 36.6 C 12/08/24 15:21 Pulse Rate 72 12/08/24 15:21 Respiratory Rate 18 12/08/24 15:21 Blood Pressure 137/51 L 12/08/24 15:21 Pulse Oximetry 99 12/08/24 15:21 Temperature 36.6 C 12/08/24 15:21 Pulse Rate 72 12/08/24 15:21 Respiratory Rate 18 12/08/24 15:21 Blood Pressure 137/51 L 12/08/24 15:21 Pulse Oximetry 99 12/08/24 15:21 <Tea Kiran APRN - Last Filed: 12/08/24 16:51> Vital Signs Temperature 36.6 C 12/08/24 15:21 Pulse Rate 72 12/08/24 15:21 Respiratory Rate 18 12/08/24 15:21 Blood Pressure 137/51 L 12/08/24 15:21 Pulse Oximetry 99 12/08/24 15:21 Temperature 36.6 C 12/08/24 15:21 Pulse Rate 72 12/08/24 15:21 Respiratory Rate 18 12/08/24 15:21 Blood Pressure 137/51 L 12/08/24 15:21 Pulse Oximetry 99 12/08/24 15:21 <Eagle Pineda MD - Last Filed: 12/08/24 19:50> Discharge Plan Discharge Clinical Impression: Calcaneal fracture <Tea Kiran APRN - Last Filed: 12/08/24 16:51> Patient Disposition: Home <Tea Kiran APRN - Last Filed: 12/08/24 16:51> Condition: Stable <Tea Kiran APRN - Last Filed: 12/08/24 16:51> Instructions: Antibiotic Form, Calcaneal Fracture (ED) <Tea Kiran APRN - Last Filed: 12/08/24 16:51> Additional Instructions: Nonweightbearing of the left leg please rest elevate ice the extremity. Please follow-up with orthopedics <Tea Kiran APRN - Last Filed: 12/08/24 16:51> Patient Language: Albanian <Tea Kiran APRN - Last Filed: 12/08/24 16:51> Prescriptions: New hydrocodone-acetaminophen 5-325 mg tablet 1 tablet PO Q6H PRN (Reason: pain) 3 Days Qty: 12 0RF No Action trazodone 50 mg tablet 50 mg PO QHS Qty: 90 4RF <Tea Kiran APRN - Last Filed: 12/08/24 16:51> Follow-up/Referrals: Fred Welch MD [Primary Care Provider] - Ramiro Kraus MD [Physician] - <Tea Kiran APRN - Last Filed: 12/08/24 16:51> Time of Disposition: 19:46 <Tea Kiran APRN - Last Filed: 12/08/24 16:51> 19:46 <Eagle Pineda MD - Last Filed: 12/08/24 19:50>
[2024-12-08] MEDS: IBUPROFEN 400 MG TABLET 800 MG PO (17:42)
--- OUTSIDE RECORDS SUMMARY | 2024-12-08 18:59 | XMS_ITS | Clinical Summary ---
Author Organization [facility] Address [address] [place] [address] Care Team Providers Care Mortgage Loan Interviewer Name Role Phone Arianne Powell MD Primary Care Provider + Source Comments [employer] [facility],non-owned Affiliates and Associated Physician Practices is amultiple site organization consisting of ambulatory clinics and hospital sitesin [place], [place], [place] and [place]. This disclosure is being madepursuant to the Care Everywhere program and may not contain all information available regarding this patient. Last updated 18.[employer] Allergies No known active allergies Medications * [...] complete this topic Insurance ANTHEM Care Teams Mortgage Loan Interviewer Relationship Specialty Start Date End Date Arianne Powell MD [address] [facility] [address] [place] [address] PCP - General Family Medicine 02/12/19
--- OUTSIDE RECORDS SUMMARY | 2024-12-08 18:59 | XMS_ITS | Encounter Summary ---
Author Organization [facility] Address [address] [place] [address] Care Team Providers Care Blade Sharpener Name Role Phone Unavailable Primary Care Provider Unavailabl e Prior Encounters Date Type Department Care Team Description 08/30/2019 Converted 13x Documents [facility] [address] [place] [phone] <No scans attached> Plan of Treatment Not on file Visit Diagnoses Not on file
--- OUTSIDE RECORDS SUMMARY | 2024-12-08 18:59 | XMS_ITS | Clinical Summary ---
Author Organization [facility] Address [address] [place] [address] Care Team Providers Care Cardiopulmonary Technician Name Role Phone Unavailable Primary Care Provider [...]
[2024-12-08] MEDS: HYDROcodone/acetaminophen (*CRX) 5-325 MG TABLET 1 TAB PO (19:13)
--- NOTE | 2024-12-08 19:24 | PC.NURSE ---
Left ankle splint applied prior to assuming care of the patient for credit intern.
[2024-12-08 20:14] VITALS: BP 118/71; PULSE 58; RESP 16; TEMP 36.6; O2SAT 99
== END 2024-12-08 20:16 | disposition home or self-care (01) ==
PROVIDERS: Emergency Provider Emergency Medicine; PCP Family Medicine
DX: S92.002A Unspecified fracture of left calcaneus, initial encounter for closed fracture (principal); W10.9XXA Fall (on) (from) unspecified stairs and steps, initial encounter
CPT/HCPCS: 29515; 73630; 73700; 99284; A9270